=== PATIENT | male | born 1995 | race Hispanic/Latino ===

== ENCOUNTER 2019-07-21 00:18 | Inpatient (IN) | payer OTHER ==
[2019-07-21] VITALS (8 sets, daily range): BP systolic 105–133; BP diastolic 55–77
[~2019-07-21] VITALS: Ht 180.3 cm; Wt 177.4 kg
[2019-07-21] MEDS ORDERED: SODIUM CHLORIDE 0.9% 1000ML 1,000 ML IV STA ×2 (00:53)
[2019-07-21] MEDS ORDERED: FAMOTIDINE 20 MG/2 ML VIAL IV ONE (01:00)
[2019-07-21] MEDS ORDERED: ONDANSETRON HCL INJ 2MG/ML 2ML 2 MG/ML VIAL IV ONE (01:00)
[2019-07-21] MEDS ORDERED: KETOROLAC TROMETHAMINE 30 MG/ML VIAL IV ONE (01:00)
[2019-07-21] MEDS ORDERED: SODIUM CHLORIDE 0.9% 1000ML 2,000 ML ONE (02:07)
--- NOTE | 2019-07-21 02:41 | Diagnostic Imaging Report ---
EXAM: CT Abdomen and Pelvis without contrast INDICATION: Abdominal Pain COMPARISON: None. TECHNIQUE: Abdomen and pelvis were scanned utilizing a multidetector helical scanner from the lung base to the pubic symphysis without administration of IV contrast. Coronal and sagittal reformations were obtained. Lack of IV contrast limits evaluation of visceral and vascular structures. IV CONTRAST: 100 cc of Isovue-370. ORAL CONTRAST: None. COMPLICATIONS: None RADIATION DOSE: Total DLP: 1418 mGy*cm Estimated effective dose: (DLP x 0.015 x size factor) mSv CTDIvol has been reviewed. It is below the limits set by the Radiation Protocol Committee (RPC). FINDINGS: LINES and TUBES: None. LOWER THORAX: Unremarkable HEPATOBILIARY: Diffuse hepatic steatosis. No evidence of focal lesion. No biliary ductal dilation. GALLBLADDER: No radio-opaque stones or sludge. No wall thickening. SPLEEN: No splenomegaly. PANCREAS: No focal masses or ductal dilatation. ADRENALS: No adrenal nodules KIDNEYS/URETERS: No evidence of hydronephrosis, solid mass, or stone. GI TRACT: There is wall thickening within the sigmoid colon with surrounding significant inflammatory changes and punctate foci of free air. Reactive mild thickening within the adjacent small bowel loops. The appendix is mildly dilated measuring up to 8 mm with mild thickening. PELVIC ORGANS/BLADDER: Decompressed bladder. LYMPH NODES: No lymphadenopathy. VESSELS: Unremarkable. PERITONEUM / RETROPERITONEUM: Small amount of free fluid in the pelvis. No free air. BONES AND SOFT TISSUES: Unremarkable. CONCLUSION: Colitis of the sigmoid colon with extensive surrounding inflammatory changes and adjacent free air, consistent with perforation. No evidence of drainable fluid collection. The appendix is mildly dilated with mild thickening, however this is felt to be more likely reactive rather than primary appendicitis. Diffuse mild hepatic steatosis. Above findings were discussed with Dr. Loco on 07/21/2019 who indicated that the communication was understood at 2:37 AM. Signed by: Dr. Steven Sun MD on 07/21/2019 2:37 AM
[2019-07-21] MEDS ORDERED: PIPER-TAZ 3.375 GM 50 ML ONE (02:45)
[2019-07-21] MEDS: PIPER-TAZ 3.375 GM 50 ML IV SCH ×4 (02:47→23:19)
[2019-07-21] MEDS ORDERED: PROMETHAZINE 25MG/ NS 50ML (IV) IV PRN (03:00)
--- OUTSIDE RECORDS SUMMARY | 2019-07-21 03:08 | XMS REPORT ---
Author [facility] Address Unknown Phone Unavailable Care Team Providers Care [employer] Engineer Name Role Phone Leon LOCO Unavailable Unavailable Problems This patient has no known problems. Allergies, Adverse Reactions, Alerts This patient has no known allergies or adverse reactions. Medications This patient has no known medications. Results Test Description Test Time Test Comments Text Results Atomic Results Result Comments CT ABD/PEL WO CONTRAST-HOPD 2019-07-21 02:23:00 [place] [address] Patient Name: ANNY ROSE MR #: [id number] : 1995 Age/Sex: 24/M Req #: [id number] Adm Physician: Ordered by: YURIDIA LOCO MD Report #: [id number] Location: [facility] Room/Bed: Procedure: [id number] HOPD/CT ABD/PEL WO CONTRAST-HOPD Exam Date: 07/21/19 Exam Time: 0140 REPORT STATUS: Signed EXAM: CT Abdomen and Pelvis without contrast INDICATION: Abdominal Pain COMPARISON: None. TECHNIQUE: Abdomen and pelvis were scanned utilizing a multidetector helical scanner from the lung base to the pubic symphysis without administration of IV contrast. Coronal and sagittal reformations were obtained. Lack of IV contrast limits evaluation of visceral and vascular structures. IV CONTRAST: 100 cc of Isovue-370. ORAL CONTRAST: None. COMPLICATIONS: None RADIATION DOSE: Total DLP: 1418 mGy*cm Estimated effective dose: (DLP x 0.015 x size factor) mSv CTDIvol has been reviewed. It is below the limits set by the Radiation Protocol Committee (RPC). FINDINGS: LINES and TUBES: None. LOWER THORAX: Unremarkable HEPATOBILIARY: Diffuse hepatic steatosis. No evidence of focal lesion. No biliary ductal dilation. GALLBLADDER: No radio-opaque stones or sludge. No wall thickening. SPLEEN: No splenomegaly. PANCREAS: No focal masses or ductal dilatation. ADRENALS: No adrenal nodules KIDNEYS/URETERS: No evidence of hydronephrosis, solid mass, or stone. GI TRACT: There is wall thickening within the sigmoid colon with surrounding significant inflammatory changes and punctate foci of free air. Reactive mild thickening within the adjacent small bowel loops. The appendix is mildly dilated measuring up to 8 mm with mild thickening. PELVIC ORGANS/BLADDER: Decompressed bladder. LYMPH NODES: No lymphadenopathy. VESSELS: Unremarkable. PERITONEUM / RETROPERITONEUM: Small amount of free fluid in the pelvis. No free air. BONES AND SOFT TISSUES: Unremarkable. CONCLUSION: Colitis of the sigmoid colon with extensive surrounding inflammatory changes and adjacent free air, consistent with perforation. No evidence of drainable fluid collection. The appendix is mildly dilated with mild thickening, however this is felt to be more likely reactive rather than primary appendicitis. Diffuse mild hepatic steatosis. Above findings were discussed with Dr. Loco on 07/21/2019 who indicated that the communication was understood at 2:37 AM. Signed by: Dr. Gay Paz MD on 07/21/2019 2:37 AM Dictated By: GAY PAZ MD 6 Transcribed By: TERE on 07/21/19236 COPY TO: YURIDIA LOCO MD
[2019-07-21] MEDS ORDERED: METRONIDAZOLE 500MG/NS 100ML 100 ML IV ONE (03:19)
--- NOTE | 2019-07-21 03:29 | NUR ---
CALLED [facility] FOR TRANSPORT TO [facility] RM 105. ETA 30MINS
--- NOTE | 2019-07-21 03:43 | NUR ---
PT UP TO RESTROOM FOR BM PER PT.
--- NOTE | 2019-07-21 03:53 | NUR ---
REPORT TO ONEYDA SANCHEZ FOR RM 105. AWAITING EMS FOR TRANSPORT
--- NOTE | 2019-07-21 04:48 | NUR ---
PT ARRIVED BY STRETCHER TO ROOM 105, PT IS AAOX3, RR EVEN AND NON-LABORED, ON ROOM AIR. PT REPORTS 6/10 PAIN THAT IS TRENDING DOWN. ORIENTED PT TO HOSPITAL POLICY, CALL LIGHTS, BED CONTROLS AND LIGHTS. LEFT PT LAYING SEMI FOWLERS IN BED, BED IN LOW LOCKED POSITION, SIDE RAILS UPX2, CALL LIGHT AND PHONE WITHIN REACH.
--- NOTE | 2019-07-21 05:03 | NUR ---
URGENT CONSULTATION CALLED TO MD Heri ROSE ANSWERING SERVICE. WAITING FOR CALLBACK.
--- NOTE | 2019-07-21 05:06 | NUR ---
SPOKE WITH MD Heri ROSE CONCERNING CONSULTATION. NO NEW ORDERS AT THIS TIME.
[2019-07-21] MEDS: LACTATED RINGER'S 1,000 ML IV SCH ×2 (05:23→09:03)
[2019-07-21] MEDS: METRONIDAZOLE 500MG/NS 100ML 100 ML IV SCH ×3 (05:23→21:20)
[2019-07-21] MEDS ORDERED: RESCUE INHALER (05:43)
[2019-07-21] MEDS: MORPHINE SULFATE INJ 4 MG/ML INJ 1ML IV PRN ×3 (05:54→13:59)
[2019-07-21] MEDS: ONDANSETRON HCL INJ 2MG/ML 2ML 2 MG/ML VIAL IV PRN (05:55)
--- NOTE | 2019-07-21 07:00 | NUR ---
BEDSIDE SHIFT REPORT RECEIVED FROM LEAD CASTER NURSE. PT DENIES NEEDS AT THIS TIME.
[2019-07-21] MEDS: FAMOTIDINE 20 MG/2 ML VIAL IV SCH ×2 (09:03→17:50)
--- NOTE | 2019-07-21 12:00 | NUR ---
PT RUNNING A SLIGHT TEMP. ICEPACKS PLACED TO BILATERAL AXCILLARIES AND BEHIND NECK.
[2019-07-21] MEDS ORDERED: HYDRALAZINE HCL 20 MG/ML VIAL IV PRN (17:45)
[2019-07-21] MEDS: DEXTROSE 5%/LACTATED RINGERS 1,000 ML IV SCH ×2 (17:50→21:20)
[2019-07-21] MEDS: ACETAMINOPHEN 325 MG TAB PO PRN (17:55)
--- NOTE | 2019-07-21 19:15 | NUR ---
WALKING ROUNDS PERFORMED, RECEIVED PT LAYING SEMI FOWLERS IN BED, AAOX3, RR EVEN AND NON-LABORED, ON ROOM AIR. NO S/SX OF DISTRESS NOTED. LEFT PT LAYING SEMI FOWLERS IN BED, BED IN LOW LOCKED POSITION, SIDE RAILS UPX2, CALL LIGHT AND PHONE WITHIN REACH.
--- NOTE | 2019-07-21 21:36 | NUR ---
NOTIFIED RT OF NEED FOR INCENTIVE SPIROMETER.
[2019-07-22] VITALS (9 sets, daily range): BP systolic 93–137; BP diastolic 51–69
[2019-07-22] MEDS: ACETAMINOPHEN 325 MG TAB PO PRN ×2 (00:07→16:18)
--- NOTE | 2019-07-22 00:10 | NUR ---
SPOKE WITH TEZ SAMUELS FOR MD TEM[place]TON CONCERNING ELEVATED TEMP AND POSSIBLE BLOOD CULTURES? NO NEW ORDERS RECEIVED JUST CONTINUE TO MEDICATE WITH TYLENOL AND MONITOR.
[2019-07-22] MEDS: MORPHINE SULFATE INJ 4 MG/ML INJ 1ML IV PRN ×2 (02:15→16:17)
[2019-07-22] MEDS: DEXTROSE 5%/LACTATED RINGERS 1,000 ML IV SCH (05:03)
[2019-07-22] MEDS: PIPER-TAZ 3.375 GM 50 ML IV SCH ×3 (05:28→16:16)
[2019-07-22 05:44] LABS: BASOPHILS % 0.2 % (0.0-1.0); EOSINOPHILS % 0.2 % (0.0-6.0); HEMATOCRIT 34.2 % (38.2-49.6); HEMOGLOBIN 11.3 g/dL (14.0-18.0); LYMPHOCYTES # (AUTO) 1.6 (1.0-3.2); MEAN CORPUSCULAR VOLUME 84.7 fL (81-99); MONOCYTES # (AUTO) 0.9 (0.2-0.8); MONOCYTES % 7.4 % (4.4-11.3); NEUTROPHILS % 77.6 % (38.7-80.0); PLATELET COUNT 252 x10e3/uL (140-360); RED BLOOD COUNT 4.04 x10e6/uL (4.3-5.7); RED CELL DISTRIBUTION WIDTH 13.8 % (11.7-14.4)
[2019-07-22 06:00] LABS: ANION GAP 10.1 mmol/L (8-16); BLOOD UREA NITROGEN 11 mg/dL (7-26); BUN/CREATININE RATIO 10 (6-25); CALCIUM 8.9 mg/dL (8.4-10.2); CARBON DIOXIDE 27 mmol/L (22-29); CHLORIDE 104 mmol/L (98-107); CREATININE, SERUM 1.15 mg/dL (0.72-1.25); EST GLOMERULAR FILTRATION RATE > 60 ML/MIN (60-); GLUCOSE 99 mg/dL (74-118); POTASSIUM 4.1 mmol/L (3.5-5.1); SODIUM 137 mmol/L (136-145)
[2019-07-22 06:18] LABS: MAGNESIUM 2.1 MG/DL (1.3-2.1); PHOSPHORUS 3.1 MG/DL (2.3-4.7)
[2019-07-22 06:32] LABS: THYROID STIMULATING HORMONE 1.818 uIU/mL (0.350-4.940)
[2019-07-22] MEDS: METRONIDAZOLE 500MG/NS 100ML 100 ML IV SCH ×4 (06:40→23:05)
--- NOTE | 2019-07-22 07:10 | NUR ---
REPORT GIVEN TO ONCOMING SHIFT, PASSED IN REPORT ABOUT PATIENT HAVING FEVER DURING THE NIGHT WITH APPLICATION OF ICE AND TYLENOL ADMINISTERED. PT REPORTS FEELING MUCH BETTER THIS AM AND REQUESTING SHOWER. IVF PLACED ON HOLD AND IV WRAPPED. PT AMBULATING AROUND ROOM WITHOUT ANY DISTRESS NOTED. PT CAN PERFORM OWN SHOWER.
--- NOTE | 2019-07-22 08:30 | NUR ---
PATIENT NOW C/O OF PAIN LEVEL 2. LOW GRADE FEVER CON'T AT 99.9. SL TO RIGHT HAND NO LONGER WORKS, WILL RESTART CAROLANN. PATIENT AWARE OF WHAT IS GOING ON, C/O LACK OF FOOD X4 DAYS, COMPLIANT WITH NPO
[2019-07-22] MEDS: SODIUM CHLORIDE 0.9% 1000ML 1,000 ML IV SCH ×3 (08:34→21:20)
[2019-07-22] MEDS: FAMOTIDINE 20 MG/2 ML VIAL IV SCH ×2 (09:15→16:16)
[2019-07-22 09:46] LABS: CLARITY,URINE CLOUDY (CLEAR); COLOR,URINE AMBER (YELLOW)
[2019-07-22 09:47] LABS: LEUKOCYTE ESTERASE ,URINE NEGATIVE (NEGATIVE)
[2019-07-22 09:57] LABS: NITRITE,URINE NEGATIVE (NEGATIVE)
[2019-07-22 09:58] LABS: BILIRUBIN,URINE MODERATE (NEGATIVE); KETONES,URINE 1+ (NEGATIVE); PROTEIN,URINE DIPSTICK >=300 (NEGATIVE); URINE UROBILINOGEN 2 mg/dL (0.2 - 1)
[2019-07-22 10:08] LABS: BACTERIA,URINE RARE /HPF; EPITHELIAL CELLS,URINE FEW /LPF
--- NOTE | 2019-07-22 14:05 | Diagnostic Imaging Report ---
EXAMINATION: CHEST XRAY LINE PLACEMENT INDICATION: PICC line placement COMPARISON: None FINDINGS: LINES/TUBES:Right PICC line is coiled in the right subclavian vein. LUNGS:The lungs are moderately inflated. No focal consolidation or pulmonary edema. PLEURA:No pleural effusion or pneumothorax. MEDIASTINUM:The cardiomediastinal silhouette appears normal in size and shape. BONES/SOFT TISSUES:No acute osseous injury. ABDOMEN:No free air under the diaphragm. IMPRESSION: Right PICC line is coiled in the right subclavian vein. No focal pneumonia or pulmonary edema. RECOMMENDATIONS: Reposition PICC line Signed by: Jarrell Marrero MD on 07/22/2019 2:03 PM
--- NOTE | 2019-07-22 14:15 | Consultation ---
DATE OF CONSULTATION: 07/22/2019 REASON FOR CONSULTATION: Colitis. HISTORY OF PRESENT ILLNESS: This patient, who is a very pleasant 24-year-old male, history of obesity, comes in with abdominal pain for 4 days, not feeling well at all, nausea, vomiting. The patient comes in. CAT scan of abdomen and pelvis was done, showed that he has colitis of the sigmoid colon with extensive surrounding changes. The appendix is mildly dilated, mildly thickened. The patient was started on antibiotic. I am asked to see him. He is currently lying in bed comfortably. He is feeling much better. He has already seen by Surgery. PHYSICAL EXAMINATION: GENERAL: He is currently alert and oriented. Does not seem to be in acute distress. VITAL SIGNS: Stable, currently afebrile. HEENT: He is not icteric. NECK: Supple. CHEST: Clear. HEART: S1 and S2. ABDOMEN: Soft. Diffuse discomfort. EXTREMITIES: No edema. SKIN: No rash. IMPRESSION: 1. Colitis. We will put him on cefepime 1 g q.8, Flagyl 500 IV q.6. He would need colonoscopy at one point. 2. Discussed with the patient, we will get a PICC line because of his weight. He may be on IV antibiotic for a few more days if not longer. Recheck CBC. Recheck chem panel. 3. We will follow. MD LEYLA Escalante/ELYSSA /[id number]
--- NOTE | 2019-07-22 14:50 | NUR ---
PICC LINE IS NOT IN POSITION, UNABLE TO GIVE IV ABX OR IV FLUIDS AT THIS TIME. PICC NURSE COMING BACK TO REPOSITION/REPLACE LINE
--- NOTE | 2019-07-22 15:40 | NUR ---
PICC LINE REMOVED, NEW PICC PLACED TO LEFT ARM. AWAITING XRAY RESULTS FOR PLACEMENT AND TO START USING. MEDICATIONS BEING DRAWN UP TO GIVE CAROLANN. LEFT FIRST FINGER INJURED DURING PICC LINE PLACEMENT WITH NURSE EQUIPMENT.
--- NOTE | 2019-07-22 15:48 | Diagnostic Imaging Report ---
EXAMINATION: CHEST XRAY LINE PLACEMENT INDICATION: Line placement COMPARISON: Chest radiograph of earlier the same day FINDINGS: LINES/TUBES:Left PICC line terminates in the region of the superior cavoatrial junction. Right PICC line remains malpositioned, coiling in the subclavian vein. LUNGS:The lung volumes remain low. No focal consolidation or pulmonary edema. PLEURA:No pleural effusion or pneumothorax. MEDIASTINUM:The cardiomediastinal silhouette appears unchanged in size and shape. BONES/SOFT TISSUES:No acute osseous injury. ABDOMEN:No free air under the diaphragm. IMPRESSION: Left PICC line terminates in the region of the superior cavoatrial junction and is adequately positioned. Right PICC line remains malpositioned, coiling in the subclavian vein. RECOMMENDATIONS: Removal of right PICC line. Signed by: Jarrell Marrero MD on 07/22/2019 3:46 PM
[2019-07-22] MEDS: ONDANSETRON HCL INJ 2MG/ML 2ML 2 MG/ML VIAL IV PRN (16:17)
[2019-07-23] VITALS (12 sets, daily range): BP systolic 128–161; BP diastolic 63–93
[2019-07-23] MEDS: PIPER-TAZ 3.375 GM 50 ML IV SCH ×2 (00:10→05:10)
[2019-07-23] MEDS: SODIUM CHLORIDE 0.9% 1000ML 1,000 ML IV SCH ×3 (01:57→19:23)
[2019-07-23 05:56] LABS: BASOPHILS % 0.1 % (0.0-1.0); EOSINOPHILS # (AUTO) 0.1 (0.0-0.4); EOSINOPHILS % 0.9 % (0.0-6.0); HEMATOCRIT 32.3 % (38.2-49.6); HEMOGLOBIN 10.5 g/dL (14.0-18.0); LYMPHOCYTES # (AUTO) 1.2 (1.0-3.2); MEAN CORPUSCULAR HEMOGLOBIN 27.1 pg (28-32); MEAN CORPUSCULAR HGB CONC 32.5 g/dL (31-35); MEAN CORPUSCULAR VOLUME 83.2 fL (81-99); MONOCYTES # (AUTO) 0.6 (0.2-0.8); MONOCYTES % 7.4 % (4.4-11.3); NEUTROPHILS # (AUTO) 6.6 (2.1-6.9); PLATELET COUNT 269 x10e3/uL (140-360); RED BLOOD COUNT 3.88 x10e6/uL (4.3-5.7); RED CELL DISTRIBUTION WIDTH 13.9 % (11.7-14.4)
[2019-07-23 06:17] LABS: ANION GAP 10.6 mmol/L (8-16); BLOOD UREA NITROGEN 11 mg/dL (7-26); BUN/CREATININE RATIO 13 (6-25); CALCIUM 8.6 mg/dL (8.4-10.2); CARBON DIOXIDE 26 mmol/L (22-29); CHLORIDE 109 mmol/L (98-107); CREATININE, SERUM 0.83 mg/dL (0.72-1.25); EST GLOMERULAR FILTRATION RATE > 60 ML/MIN (60-); GLUCOSE 81 mg/dL (74-118); LIPASE 54 U/L (8-78); POTASSIUM 3.6 mmol/L (3.5-5.1); SODIUM 142 mmol/L (136-145)
[2019-07-23] MEDS: METRONIDAZOLE 500MG/NS 100ML 100 ML IV SCH ×3 (06:37→23:36)
[2019-07-23] MEDS: FAMOTIDINE 20 MG/2 ML VIAL IV SCH ×2 (09:08→17:07)
[2019-07-23] MEDS: CEFEPIME 1GM/NS 0.9% 50 ML 50 ML IV SCH ×2 (09:16→17:07)
[2019-07-23] MEDS ORDERED: CEFEPIME HCL 1 GM VIAL IV SCH (14:00)
--- NOTE | 2019-07-23 19:35 | NUR ---
PATIENT AAOX4, ABLE TO VERBALIZE NEED, UP OOB WITH STANDBY ASSISTANCE, FAMILY AT BEDSIDE, PATIENT C/O NO PAIN STATES "I HAVE NO PAIN AT THIS TIME", SKIN WARM DRY, VSS, BED IN LOWEST POSITION, PLAN OF CARE DISCUSSED WITH PATIENT AND FAMILY, INFORMED OF IV ABT CONT, CALL LIGHT WITHIN REACH
[2019-07-23] MEDS: ACETAMINOPHEN 325 MG TAB PO PRN (20:21)
--- NOTE | 2019-07-24 | NUR ---
PATIENT HAS MILD TEMP 99.4, PRN TYLENOL REQUESTED BY PATIENT FOR MILD PAIN, PRN ANTI-PYRETIC GIVEN FOR MILD PAIN/MILD TEMP, TOLERATED WELL, WILL CONTINUE TO MONITOR
[2019-07-24] MEDS: CEFEPIME 1GM/NS 0.9% 50 ML 50 ML IV SCH ×3 (00:14→17:30)
[2019-07-24 04:17] VITALS: BP 153/95
[2019-07-24 04:21] VITALS: BP 153/95
[2019-07-24 04:44] LABS: BASOPHILS % 0.3 % (0.0-1.0); EOSINOPHILS # (AUTO) 0.1 (0.0-0.4); EOSINOPHILS % 1.5 % (0.0-6.0); HEMATOCRIT 32.2 % (38.2-49.6); HEMOGLOBIN 10.7 g/dL (14.0-18.0); LYMPHOCYTES # (AUTO) 1.3 (1.0-3.2); LYMPHOCYTES % 16.6 % (18.0-39.1); MEAN CORPUSCULAR HEMOGLOBIN 27.5 pg (28-32); MEAN CORPUSCULAR HGB CONC 33.2 g/dL (31-35); MEAN CORPUSCULAR VOLUME 82.8 fL (81-99); MONOCYTES # (AUTO) 0.6 (0.2-0.8); MONOCYTES % 7.7 % (4.4-11.3); NEUTROPHILS # (AUTO) 5.8 (2.1-6.9); NEUTROPHILS % 73.4 % (38.7-80.0); PLATELET COUNT 295 x10e3/uL (140-360); RED BLOOD COUNT 3.89 x10e6/uL (4.3-5.7); RED CELL DISTRIBUTION WIDTH 13.9 % (11.7-14.4)
[2019-07-24 05:03] LABS: ALANINE AMINOTRANSFERASE 24 IU/L (0-55); ALKALINE PHOSPHATASE 56 IU/L (40-150); ANION GAP 11.5 mmol/L (8-16); BLOOD UREA NITROGEN 8 mg/dL (7-26); BUN/CREATININE RATIO 10 (6-25); CALCIUM 8.4 mg/dL (8.4-10.2); CARBON DIOXIDE 24 mmol/L (22-29); CHLORIDE 108 mmol/L (98-107); EST GLOMERULAR FILTRATION RATE > 60 ML/MIN (60-); GLUCOSE 80 mg/dL (74-118); POTASSIUM 3.5 mmol/L (3.5-5.1); SODIUM 140 mmol/L (136-145)
[2019-07-24 05:19] LABS: ALBUMIN 2.6 g/dL (3.5-5.0); ALBUMIN/GLOBULIN RATIO 0.7 (0.8-2.0)
[2019-07-24] MEDS: METRONIDAZOLE 500MG/NS 100ML 100 ML IV SCH ×2 (06:40→14:31)
[2019-07-24] MEDS: MORPHINE SULFATE INJ 4 MG/ML INJ 1ML IV PRN (06:40)
--- NOTE | 2019-07-24 07:15 | NUR ---
BSSR GIVEN VERBALLY TO JULY, PATIENT AOX4, UPDATED ON PATIENT PLAN OF CARE, FAMILY AT BEDSIDE, PATIENT REPORTED AT 0630 THIS AM THAT PAIN LEVEL 10/10, SEEN LYING IN BED, FACE GRIMACING, AND GRUNTING HOLDING HIS ABDOMEN, REQUESTING PAIN MEDICATION, PRN MORPHINE GIVEN VIA FRED PICC LINE, AFTER PUSHING IV MED, PT C/O NAUSEA, PRN ZOFRAN IV GIVEN TO PATIENT DURING SHIFT CHANGE, PATIENT NOW REPORT PAIN LEVE 2/10, CALL LIGHT WITHIN REACH
[2019-07-24] MEDS: ONDANSETRON HCL INJ 2MG/ML 2ML 2 MG/ML VIAL IV PRN (07:25)
[2019-07-24 08:00] VITALS: BP 153/95
--- NOTE | 2019-07-24 08:00 | NUR ---
patient voiced to me that he has had frequent loose stools. infectious disease PA notified and order for questran once a day ordered, but only administer is loose stool is witnessed.
[2019-07-24] MEDS: FAMOTIDINE 20 MG/2 ML VIAL IV SCH ×2 (08:28→17:30)
[2019-07-24 08:36] VITALS: BP 144/84
[2019-07-24] MEDS ORDERED: TYLENOL WITH C1 EACH PO (09:21)
[2019-07-24] MEDS ORDERED: FLAGYL500 MG PO (09:21)
[2019-07-24] MEDS ORDERED: CEFEPIME HCL1 GM IV (09:22)
[2019-07-24] MEDS: SODIUM CHLORIDE 0.9% 1000ML 1,000 ML IV SCH (09:51)
[2019-07-24] MEDS ORDERED: CHOLESTYRAMINE 4 GM PACKET PO SCH (10:00)
--- NOTE | 2019-07-24 10:56 | NUR ---
dose of questran held this morning as patient has not had loose BM today.
[2019-07-24] MEDS ORDERED: MORPHINE SULFATE 2 MG/ML SYR 1ML IV PRN (11:00)
[2019-07-24 12:18] VITALS: BP 142/88
[2019-07-24 16:16] VITALS: BP 163/94
--- NOTE | 2019-07-24 19:00 | NUR ---
PATIENT DISCHARGED. PICC LEFT IN ARM FOR HOME INFUSION. PRESCRIPTIONS AND DISCHARGE INSTRUCTIONS GIVEN TO PATIENT'S MOTHER. BOTH PATIENT AND MOTHER DENIED ANY QUESTIONS. PATIENT AMBULATED OFF UNIT IN STABLE CONDITION.
--- NOTE | 2019-07-24 21:41 | Discharge Summary ---
ADMISSION DIAGNOSES: Acute sigmoid colon colitis with perforation; possible urinary tract infection, present on admission; acute kidney injury; hypokalemia; and super morbid obesity with a BMI of 53.55. DISCHARGE DIAGNOSES: Acute sigmoid colon colitis with perforation; possible urinary tract infection, present on admission; acute kidney injury; hypokalemia; super morbid obesity with a BMI of 53.55, and rule out urinary tract infection. HISTORY: Asthma. SURGICAL HISTORY: None. FAMILY HISTORY: Noncontributory. SOCIAL HISTORY: Noncontributory. HOSPITAL COURSE: A 24-year-old male admits with complaints of lower abdominal pain, diarrhea, dysuria, nausea and vomiting for the past few days. He denies any sick contacts, camping or travel outside of the [place] , he came home sick and progressively got worse and then went to the Urgent Care and was moved to the ER at [facility]. On admission, the patient had a temperature of 101. CT of the abdomen and pelvis showed colitis of the sigmoid colon with extensive surrounding inflammatory changes and adjacent free air consistent with perforation. No evidence of drainable fluid collection. Surgery was consulted and the patient was started on Flagyl and cefepime. For persistent fever, ID was consulted, who continued the patient on the antibiotics. They recommended a PICC line placed, so that the patient could discharge home with long-term antibiotics. There is no need for surgery due to continued improvement per surgery recommendation. The patient will discharge home with two more weeks of Flagyl and cefepime. The patient and family understand discharge instructions and agrees to plan. Vital signs are stable, the patient is afebrile. Dictated by Vida Bansal NP MD CASEY Mayo/MODL /[id number]
--- NOTE | 2019-07-25 12:37 | NUR ---
LATE ENTRY ON 07/23 REC'D ORDERS FOR HOME IV ABX OF CEFEPIME 1 GM IV Q 12 HRS CBC AND BMP Q MONDAY WHILE ON IV ABX AND CALL LAB RESULTS TO DR TAN CHOICE LETTER SIGNED BY PT FOR [facility] (IN NETWORK WITH HIS INS) SPOKE WITH CLAUDIA VALENCIA AT [facility] AND FAXED CLINICALS- CONFIRMATION REC'D PH [phone] FAX- [phone] BRAYDEN FROM [facility] HERE TO DO PATIENT TEACH OK FOR DC
== END 2019-07-24 17:05 | disposition home or self-care (01) | DRG 871 ==
LOC: FSED 00:18 → ERHOLD 02:55 → MED/SURG 04:59
PROVIDERS: ADMIT Internal Medicine; ATTEND Internal Medicine
PROC: 02HV33Z Insertion of Infusion Device into Superior Vena Cava, Percutaneous Approach (ICD-10-PCS; principal; 2019-07-22)
PROC: B548ZZA Ultrasonography of Superior Vena Cava, Guidance (ICD-10-PCS; 2019-07-22)
DX: A41.9 Sepsis, unspecified organism (principal); K85.90 Acute pancreatitis without necrosis or infection, unspecified; K57.20 Diverticulitis of large intestine with perforation and abscess without bleeding; E87.1 Hypo-osmolality and hyponatremia; N39.0 Urinary tract infection, site not specified; N17.9 Acute kidney failure, unspecified; Z68.43 Body mass index [BMI] 50.0-59.9, adult; E86.0 Dehydration; E87.6 Hypokalemia; E66.01 Morbid (severe) obesity due to excess calories; K52.9 Noninfective gastroenteritis and colitis, unspecified; D64.9 Anemia, unspecified
CPT/HCPCS: 36415; 36569; 74176; 80048; 80053; 81001; 81003; 83036; 83690; 83735; 84100; 84443; 85025; 87040; 87086; 96365; 96375; 96376; 99284; J0692; J1885; J2270; J2405; J2543; J7030; J7121